=== PATIENT | female | born 1950 | race Caucasian/White ===

== ENCOUNTER 2015-12-30 10:04 | Outpatient (RCR) | payer MEDICARE ==
[~2015-12-30 10:04] MED LIST: ATOR20TA66 PO; CEFU500T PO; CEFU500T5 PO; HYDR-3729 PO; IBUP-1773 PO; NF-ESOM40C PO; OLME1TAB19 PO; OMEP20TA7 PO; SIMV20TA3 PO
--- OUTSIDE RECORDS SUMMARY | 2015-12-30 10:09 | XMS REPORT | Continuity of Care Document ---
Author Author [facility] Organization [facility] Address Unknown Phone Unavailable Care Team Providers Care Laundry Operator Name Role Phone Morgan Davis PCP [phone] Source Comments Some departments are not documenting in the electronic medical record. If you do not see the information that you expected, contact Release of Information in the Health Information Management department at [phone] for further assistance in locating additional records.[facility] Active Allergies and Adverse Reactions Allergen Noted Date Severity Reactions Comments Augmentin 01/24/2012 HIVES Bactroban 10/01/2013 HIVES, EDEMA Current Medications Prescription Sig. Disp. Refills Start End Date Status Date esomeprazole DR(+) Take 40 mg by mouth Every Active (NEXIUM) 40 mg PO capsule Morning. olmesartan-hydrochlorothi Take 1 Tab by mouth Active azide (BENICAR HCT) Daily. 20-12.5 mg PO per tablet CEFUROXIME AXETIL (CEFTIN Take by mouth. Active PO) atorvastatin (LIPITOR) 20 Take 20 mg by mouth Active mg tablet daily. acyclovir (ZOVIRAX) 800 Take 800 mg by mouth five Active mg tablet times daily. predniSONE (DELTASONE) 5 Take 5 mg by mouth daily. Active mg tablet Active Problems Problem Noted Date Malignant melanoma (HCC) 10/06/2012 Overview: HISTORY: She had noted a raised skin colored area above her knee for some time. However, it started turning marin red and bubbled up in January 2012. She presented to her civil engineer land development, Dr. Carty, who biopsied and found no malignancy. It was then treated with kenalog injection and several different topicals including CeraVe, Vanos, and clobetasol. When none of this had response and the lesion continued to grow to 3 x 2.5cm a second biopsy was done of two separate areas. The 12" area was superficial spreading melanoma, 0.23 mm thick, clarks level II, no ulceration, mitotic index < 1/mm2, melanoma in situ with positive margins. The 9" area was found to be superficial spreading melanoma with spindle component, 0.75mm thick, clarks level IV, without ulceration, mitotic rate of < 1/mm2, with positive margins. She was then sent to Dr. Ortega for WLE. Pathology revealed malignant melanoma, superficial spreading type with spindle cell component, 1.05mm thick, clarks level III, without ulceration, rare mitotic count, positive for Melan-A. A second WLE was performed due to narrow margins which found no residual melanoma and negative sentinel node. PAST TREATMENT: WLE and sentinel node biopsy AJCC INDIVIDUALIZED PREDICTION TOOL: 1-Year: 99.5 %, 2-Year: 98.8 %, 5-Year: 95.7 %, 10-Year: 91.7 % CURRENT TREATMENT: observation Last Assessment & Plan: We discussed her diagnosis and prognosis. While her melanoma is an odd case, it does not have characteristics that put her at high risk for recurrence. She does not meet the guidelines for adjuvant treatment based on the findings we have today. We recommend continued close follow up with her civil engineer land development and with the surgeon. PLAN: 1. No set follow up at this time, but we are happy to see her again should she like 2. Continue to follow up with Dr. Quinteros 3. Continue to follow with Dr. Ortega and Dr. 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 Most Recent Encounters Date Type Specialty Providers Description 10/13/2015 Office Visit Oncology Del Quinteros MD DCIS (ductal carcinoma in situ) of breast, right (Primary Dx); Malignant melanoma (HCC) 09/29/2015 Telephone Oncology Del Quinteros MD Appointment Request Social History Tobacco Use Types Packs/Day Years Used Date Never Smoker Smokeless Tobacco: Never Used Alcohol Use Drinks/Week oz/Week Comments Yes socially Last Filed Vital Signs Vital Sign Reading Time Taken Blood Pressure 152/78 10/13/2015 1:31 PM CDT Pulse 83 10/13/2015 1:31 PM CDT Temperature 37.2 C (98.9 F) 10/13/2015 1:31 PM CDT Respiratory Rate 16 02/08/2015 12:58 PM HEATING MECHANIC Height 1.619 m (5' 3.74") 10/13/2015 1:31 PM CDT Weight 93.441 kg (206 lb) 10/13/2015 1:31 PM CDT Body Mass Index 35.65 10/13/2015 1:31 PM CDT Oxygen Saturation 95% 10/13/2015 1:31 PM CDT Plan of Care Date Type Specialty Providers Description 04/19/2016 Appointment Radiology Del Quinteros MD [address] [place] [address] [phone] (Fax) 04/19/2016 Appointment Oncology Del Quinteros MD [address] [place] [address] [phone] (Fax) Health Maintenance Due Date Last Done Comments Hepatitis C Screening 1950 Physical (Comprehensive) 1957 Exam Pertussis Vaccine 1961 Tetanus Vaccine 1967 Colorectal Cancer 02/08/2000 Screening Shingles Vaccine 2010 Osteoporosis Screening 2015 Prevnar/Pneumovax (#1) 2015 Influenza Vaccine 11/17/2015 Breast Cancer Screening 03/24/2017 03/24/2015, 02/04/2014, 01/22/2013 Additional history exists Results from Last 3 Months Not on file
[2016-01-13] MEDS ORDERED: SITA1TAB2 PO (10:13)
[2016-01-23] MEDS ORDERED: IBUP-1773 PO (12:44)
[2016-01-23] MEDS ORDERED: HYDR-3729 PO (12:44)
[2016-01-23] MEDS ORDERED: DOCU-143 PO (12:44)
== END 2016-03-29 | disposition home or self-care (01) ==
LOC: DSME 10:04
PROVIDERS: ATTEND Internal Medicine
DX: E11.65 Type 2 diabetes mellitus with hyperglycemia (principal)

== ENCOUNTER 2016-04-02 08:00 | Outpatient (RCR) | payer MEDICARE ==
[~2016-04-02] VITALS: Ht 162.6 cm; Wt 79.4 kg
[~2016-04-02 08:00] MED LIST changes: +DOCU-143 PO; +SITA1TAB2 PO
--- OUTSIDE RECORDS SUMMARY | 2016-05-10 12:24 | XMS REPORT | Continuity of Care Document ---
Author Author [facility] Organization [facility] Address Unknown Phone Unavailable Care Team Providers Care Federal Judge Name Role Phone Morgan Davis PCP [phone] Source Comments Some departments are not documenting in the electronic medical record. If you do not see the information that you expected, contact Release of Information in the Health Information Management department at [phone] for further assistance in locating additional records.[facility] Active Allergies and Adverse Reactions Allergen Noted [...] mg by mouth daily. Active mg tablet sitaGLIPtin-metformin Take by mouth twice Active (JANUMET XR) 50-1,000 mg daily. TM24 omeprazole DR(+) Take 20 mg by mouth daily Active (PRILOSEC) 20 mg capsule before breakfast. Active Problems Problem Noted Date Malignant melanoma (HCC) 10/06/2012 Overview: HISTORY: She had noted a raised skin colored area above her knee for some time. However, it started turning marin red and bubbled up in January 2012. She presented to her manager shell, Dr. Carty, who biopsied and found no [...] recommend continued close follow up with her manager shell and with the surgeon. PLAN: 1. No set follow up at this time, but we are happy to see her again should she like 2. Continue to follow up with Dr. Quinteros 3. Continue to follow with Dr. Ortega and Dr. 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 Most Recent Encounters Date Type Specialty Providers Description 04/26/2016 Ancillary Radiology Outpatient, Radiologist Diagnosis unknown Orders (Primary Dx) 04/19/2016 Office Visit Oncology Del Quinteros MD DCIS (ductal carcinoma in situ) of breast, right (Primary Dx) 04/19/2016 Hospital Radiology Del Quinteros MD Encounter 04/19/2016 Ancillary Oncology Del Quinteros MD DCIS (ductal carcinoma in Orders situ) of breast, right (Primary Dx) 03/05/2016 Telephone Oncology Del Quinteros MD General Question Social History Tobacco Use Types Packs/Day Years Used Date Never Smoker Smokeless Tobacco: Never Used Alcohol Use Drinks/Week oz/Week Comments Yes socially Last Filed Vital Signs Vital Sign Reading Time Taken Blood Pressure 133/89 04/19/2016 1:26 PM PREVENTION COORDINATOR Pulse 77 04/19/2016 1:26 PM PREVENTION COORDINATOR Temperature 36.9 C (98.4 F) 04/19/2016 1:26 PM PREVENTION COORDINATOR Respiratory Rate 18 04/19/2016 1:26 PM PREVENTION COORDINATOR Height 1.619 m (5' 3.74") 04/19/2016 1:26 PM PREVENTION COORDINATOR Weight 78.835 kg (173 lb 12.8 04/19/2016 1:26 PM PREVENTION COORDINATOR oz) Body Mass Index 30.08 04/19/2016 1:26 PM PREVENTION COORDINATOR Oxygen Saturation 99% 04/19/2016 1:26 PM PREVENTION COORDINATOR Plan of Care Date Type Specialty Providers Description 10/18/2016 Appointment Oncology Del Quniteros MD [address] [facility] [address] [place] [address] [phone] (Fax) Health Maintenance Due Date Last Done Comments Hepatitis C Screening 1950 Physical (Comprehensive) 1957 Exam Pertussis Vaccine 1961 Tetanus Vaccine 1967 Colorectal Cancer 02/08/2000 Screening Shingles Vaccine 2010 Osteoporosis Screening 2015 Prevnar/Pneumovax (#1) 2015 Influenza Vaccine 11/17/2015 Breast Cancer Screening 04/19/2017 04/19/2016, 03/24/2015, 02/04/2014 Additional history exists Results from Last 3 Months MAMMO DIAGNOSTIC AMANDA/POP (04/19/2016 12:00 PM) Impressions ACR BI-RADS Assessments: BIRAD 2-Benign RECOMMENDATION: Routine screening mammogram of both breasts in 1 year. Narrative Last mammogram was performed 1 year and 1 month ago. Reason for exam: history of breast cancer, conservation therapy. Hx of right breast cancer Performed by: Kamari Salinas [id number] MAMMO DIAGNOSTIC AMANDA/POP: APRIL 19, 2016 - 2D/3D Procedure 3D Routine views. 2D Routine views. Technologist: Kamari Salinas Prior study comparison: March 24, 2015, bilateral [id number] MAMMO DIAGNOSTIC AMANDA/POP performed at [facility] Breast.February 04, 2014, bilateral CCC DIG MA DX AMANDA/T performed at [facility] Breast Imaging. The breasts are heterogeneously dense, which may obscure detection of small masses.2-D, and 3-D, tomosynthesis images were obtained. History. 66-year-old female with history of right breast cancer status post lumpectomy in December 2009. There are stable post-surgical changes in the right breast. Left breast biopsy clips are noted. There are no abnormal asymmetries, masses or suspicious microcalcifications present to suggest malignancy.No changes from prior exam. Approved by Marcos Briceno MD on 04/19/2016 12:06 PM By my electronic signature, I attest that I have personally reviewed the images for this examination and formulated the interpretations and opinions expressed in this report Finalized by Ruslan Snider M.D. on 04/19/2016 12:30 PM. Dictated by Marcos Briceno MD on 04/19/2016 12:02 PM. Electronically signed and approved by: Ruslan Snider M.D. [id number] Procedure Note Interface, Radiant Results - [facility] Apr 19, 2016 12:30 PM PREVENTION COORDINATOR Last mammogram was performed 1 year and 1 month ago. Reason for exam: history of breast cancer, conservation therapy. Hx of right breast cancer Performed by: Kamari Salinas [id number] MAMMO DIAGNOSTIC AMANDA/POP: APRIL 19, 2016 - 2D/3D Procedure 3D Routine views. 2D Routine views. Technologist: Kamari Salinas Prior study comparison: March 24, 2015, bilateral [id number] MAMMO DIAGNOSTIC AMANDA/POP performed at [facility] Breast. February 04, 2014, bilateral CCC DIG MA DX AMANDA/T performed at [facility] Breast Imaging. The breasts are heterogeneously dense, which may obscure detection of small masses. 2-D, and 3-D, tomosynthesis images were obtained. History. 66-year-old female with history of right breast cancer status post lumpectomy in December 2009. There are stable post-surgical changes in the right breast. Left breast biopsy clips are noted. There are no abnormal asymmetries, masses or suspicious microcalcifications present to suggest malignancy. No changes from prior exam. Approved by Marcos Briceno MD on 04/19/2016 12:06 PM By my electronic signature, I attest that I have personally reviewed the images for this examination and formulated the interpretations and opinions expressed in this report Finalized by Ruslan Snider M.D. on 04/19/2016 12:30 PM. Dictated by Marcos Briceno MD on 04/19/2016 12:02 PM. Electronically signed and approved by: Ruslan Snider M.D. [id number] IMPRESSION ACR BI-RADS Assessments: BIRAD 2-Benign RECOMMENDATION: Routine screening mammogram of both breasts in 1 year.
== END 2016-07-01 | disposition home or self-care (01) ==
LOC: DSME 08:00
PROVIDERS: ATTEND Internal Medicine
DX: E11.65 Type 2 diabetes mellitus with hyperglycemia (principal)